=== PATIENT | male | born 1985 | race Caucasian/White ===

== ENCOUNTER 2019-08-19 13:14 | Emergency (ER) | payer BC ==
--- OUTSIDE RECORDS SUMMARY | 2019-08-19 13:24 | XMS REPORT | Summary of Care ---
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 Details Date Type Department Care Team Description 03/30/2019 Urgent Care [facility] Unknown, Attending Viral illness (Primary Dx); Urgent Care Frantz Walton MD [address] [facility] [address] [place] [address] Cough; [address] [facility], Headache due to viral [place] [address] [place] [address] Allergies No Known Allergiesdocumented as of this encounter (statuses as of 03/30/2019) Medications Medication Sig Dispensed Refills Start Date End Date Status acetaminophen-codeine 1/2 - 1 tab Every 15 tablet 0 03/30/2019 Active 300-30 mg 4hrs as needed for tabletIndications: pain or cough Cough requiring narcotic documented as of this encounter (statuses as of 03/30/2019) Active Problems No known active problemsdocumented as of this encounter (statuses as of 2018) Social History Tobacco Use Types Packs/Day Years Used Date Never Smoker Smokeless Tobacco: Never Used Sex Assigned at Date Recorded Not on file Job Start Date Occupation Industry Not on file Not on file Not on file Travel History Travel Start Travel End No recent travel history available. documented as of this encounter Last Filed Vital Signs Vital Sign Reading Time Taken Comments Blood Pressure 125/81 03/30/2019 7:23 PM CDT Pulse 65 03/30/2019 7:23 PM CDT Temperature 36.7 C (98 F) 03/30/2019 7:23 PM CDT Respiratory Rate 18 03/30/2019 7:23 PM CDT Oxygen Saturation 97% 03/30/2019 7:23 PM CDT Inhaled Oxygen Concentration - - Weight 89.8 kg (198 lb) 03/30/2019 7:23 PM CDT Height 175.3 cm (5' 9") 03/30/2019 7:23 PM CDT Body Mass Index 29.24 03/30/2019 7:23 PM CDT documented in this encounter Patient Instructions Patient InstructionsFrantz Walton MD - 03/30/2019 7:00 PM CDT1. Viral illness Viral Illness -- Summertime cold . No focus suspicious for a bacterial process. Encourage fluids. Eat as desired. Any meals missed while ill will be made up when well again. 2. Cough - acetaminophen-codeine 300-30 mg tablet; 1/2 - 1 tab Every 4hrs as needed for pain or cough requiring narcotic Dispense: 15 tablet; Refill: 0 Cough Honey 2 teaspoons relieves airway irritation. Use as needed. Dark Chocolate may help with cough (xanthenes). Research from [place] but did not specify how many boxes to eat. Guaifenesin 100mg / Dextromethorphan 10mL in 5mL (Robitussin DM): 10mL every 4 hours as needed for cough and mucous flow. Many other brands. Recommend those with only guaifenesin & dextromethorphan. Codeine when narcotic needed beginning with half pill. Do not drive or engage in hazardous activities for 4 hours after taking codeine. 3. Headache due to viral infection Pain Acetaminophen (Tylenol) 500mg take 2 tablets twice a day baseline and up to 4 times a day for pain. May add Ibuprofen 200mg take 2 tablets every 4 hours if greater relief needed. In blinded studies, greater than 400mg does not relieve pain better than 400mg. If any risk of heart problem, limit to 1200mg a day. Tylenol and ibuprofen may be taken at the same time and give greater relief than expected if add thetwo effects together, called "1+1=3" Codeine if narcotic necessary, Has a tylenol in it, to be counted in daily total. Do not drive or engage in hazardous activities for 4 hours after taking codeine. See primary provider if follow up needed or return here as needed. 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 All Vitals taken, allergies and all medications reviewed, fall risk assessed. Pain level 0. 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 HPI Tue scratchy throat Wed productive cough. Frontal headache. Awake on-call Tx: Mucinex, APAP Medications No outpatient medications prior to visit. No facility-administered medications prior to visit. Review of Systems Constitutional: Denies fever, chills Skin: Denies: Rash Allergy/Immunology: rhinorrhea resolved Eyes: Denies: visual loss or blurred vision ENT: sore throat Denies: Earache, nasal congestion, Respiratory: cough Denies: dyspnea, Gastrointestinal: Denies: abdominal pain, nausea, vomiting, diarrhea Genitourinary: Denies: dysuria, urgency, frequency Musculoskeletal: Denies: Lumbar pain, extremity pain Neuro: frontal headache, Denies: vision change, dizziness, lightheaded No past medical history on file. No past surgical history on file. No family history on file. Social History Socioeconomic History Marital status: Spouse name: Not on file Number of children: Not on file Years of education: Not on file Highest education level: Not on file Occupational History Not on file Social Needs Financial resource strain: Not on file Food insecurity: Worry: Not on file Inability: Not on file Transportation needs: Medical: Not on file Non-medical: Not on file Tobacco Use Smoking status: Never Smoker Smokeless tobacco: Never Used Substance and Sexual Activity Alcohol use: Not on file Drug use: Not on file Sexual activity: Not on file Lifestyle Physical activity: Days per week: Not on file Minutes per session: Not on file Stress: Not on file Relationships Social connections: Talks on phone: Not on file Gets together: Not on file Attends scientology service: Not on file Active member of club or organization: Not on file Attends meetings of clubs or organizations: Not on file Relationship status: Not on file Intimate partner violence: Fear of current or ex partner: Not on file Emotionally abused: Not on file Physically abused: Not on file Forced sexual activity: Not on file Other Topics Concerns: Not on file Social History Narrative Not on file Vital Signs BP 125/81 | Pulse 65 | Temp 36.7 C (98 F) (Oral) | Resp 18 | Ht 5' 9" ( 1.753 m) | Wt 198 lb(89.8 kg) | SpO2 97% | BMI 29.24 kg/m Physical Exam Head: Inspection normal. Face nontender Eyes: PERRL, conjunctiva/sclera normal ENT: moist mucous membranes, palate normal, pharynx normal, nose normal, Neck: non-tender, no masses or swelling Respiratory/Chest: breath sounds normal, no wheezing Cardiovascular: regular rate and rhythm, heart sounds normal GI: abdomen soft, non-tender, bowel sounds normal MS: Legs: non-tender Back: non-tender, no CVA tenderness Skin: no rash. Normal color and turgor. Neurologic: alert, speech normal, gait normal Psychiatric: Interactive, Mood normal Assessment/Plan 1. Viral illness Viral Illness -- Summertime cold . No focus suspicious for a bacterial process. Encourage fluids. Eat as desired. Any meals missed while ill will be made up when well again. 2. Cough - acetaminophen-codeine 300-30 mg tablet; 1/2 - 1 tab Every 4hrs as needed for pain or cough requiring narcotic Dispense: 15 tablet; Refill: 0 Cough Honey 2 teaspoons relieves airway irritation. Use as needed. Dark Chocolate may help with cough (xanthenes). Research from [place] but did not specify how many boxes to eat. Guaifenesin 100mg / Dextromethorphan 10mL in 5mL (Robitussin DM): 10mL every 4 hours as needed for cough and mucous flow. Many other brands. Recommend those with only guaifenesin & dextromethorphan. Codeine when narcotic needed beginning with half pill. Do not drive or engage in hazardous activities for 4 hours after taking codeine. 3. Headache due to viral infection Pain Acetaminophen (Tylenol) 500mg take 2 tablets twice a day baseline and up to 4 times a day for pain. May add Ibuprofen 200mg take 2 tablets every 4 hours if greater relief needed. In blinded studies, greater than 400mg does not relieve pain better than 400mg. If any risk of heart problem, limit to 1200mg a day. Tylenol and ibuprofen may be taken at the same time and give greater relief than expected if add thetwo effects together, called "1+1=3" Codeine if narcotic necessary, Has a tylenol in it, to be counted in daily total. Do not drive or engage in hazardous activities for 4 hours after taking codeine. See primary provider if follow up needed or return here as needed. documented in this encounter Plan of Treatment Health Maintenance Due Date Last Done Comments VARICELLA VACCINES (1 of - + 1997 2-dose series) DTaP,Tdap,and Td Vaccines ( - 2003 Tdap) INFLUENZA VACCINE (#1) 2019 PNEUMOCOCCAL 0-64 YEARS COMBINED Aged Out No longer eligible based on SERIES patient's age to complete this topic documented as of this encounter Results Not on filedocumented in this encounter Visit Diagnoses Diagnosis Viral illness - Primary Unspecified viral infection, in conditions classified elsewhere and of unspecified site Cough Headache due to viral infection documented in this encounter Insurance Payer Benefit Plan Subscriber ID Effective Dates Phone Address Type / Group BCBS OF [facility] [id number] 2018-Jairo [phone] [address] PPO/POS [facility] [id number] [place] [address] (Home) [place] [address] documented as of this encounter
--- OUTSIDE RECORDS SUMMARY | 2019-08-19 13:24 | XMS REPORT ---
:1985 [facility] Address [address] [place] [address] Dr. Khan [address] [place] [address] Care Team Providers Name Role Phone Unavailable Unavailable Unavailable Problems This patient has no known problems. Allergies, Adverse Reactions, Alerts This patient has no known allergies or adverse reactions. Medications This patient has no known medications.
--- NOTE | 2019-08-19 14:40 | RAD REPORT ---
EXAM DESCRIPTION: RAD - Chest Pa And Lat (2 Views) - 08/19/2019 2:05 pm CLINICAL HISTORY: fever, cough Chest pain. COMPARISON: [facility] Protocol dated 06/24/2019No comparisons FINDINGS: The lungs are clear. The heart is normal in size. No displaced fractures. IMPRESSION: No acute abnormality detected.
--- NOTE | 2019-08-19 15:19 | EDPHYS ---
Physician Documentation [facility] Name: Gilmar Wall Age: 34 yrs Sex: Male : 1985 Arrival Date: 08/19/2019 Time: 13:17 Bed 30 Private MD: ED Physician Ino Amezcua HPI: 08/19 13:53 This 34 yrs old Male presents to ER via Ambulatory with complaints of Fever. jmm 13:53 Onset: The symptoms/episode began/occurred 1 day(s) ago. Modifying factors: The jmm symptoms are alleviated by nothing. the symptoms are aggravated by nothing. Associated signs and symptoms: Pertinent positives: fever, cough. This is a 34 year old male with no chronic medical conditions that presents to the ED with complaints of fever and slight cough beginning 1 day ago. Denies sore throat, vomiting, abdominal pain. 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 Denies contact with anyone under investigation for coronavirus. Denies recent travel to [employer] . Historical: - Allergies: 13:29 No Known Allergies; hb - PMHx: 13:29 None; hb - PSHx: 13:29 None; hb - Immunization history:: Flu vaccine is not up to date. - Coronavirus screen:: The patient has NOT traveled to [place], [place], or [place] in the past 14 days. The patient has NOT had contact with known/suspected case of Coronavirus? Proceed with normal triage procedures. - Social history:: Smoking status: Patient denies any tobacco usage or history of. - Ebola Screening: : No symptoms or risks identified at this time. ROS: 13:53 Cardiovascular: Negative for chest pain, palpitations, and edema, Respiratory: Negative jmm for shortness of breath, cough, wheezing, and pleuritic chest pain. 13:53 Constitutional: Positive for fever. 13:53 Respiratory: Positive for cough. 13:53 All other systems are negative. Exam: 13:53 Constitutional: This is a well developed, well nourished patient who is awake, alert, jmm and in no acute distress. Head/Face: atraumatic. Eyes: EOMI, no conjunctival erythema appreciated 13:53 Neck: Trachea midline, Supple Chest/axilla: Normal chest wall appearance and motion. Cardiovascular: Regular rate and rhythm. No edema appreciated Respiratory: Normal respirations, no respiratory distress appreciated Abdomen/GI: Non distended, soft Back: Normal ROM Skin: General appearance color normal MS/ Extremity: Moves all extremities, no obvious deformities appreciated, no edema noted to the lower extremities Neuro: Awake and alert, normal gait Psych: Behavior is normal, Mood is normal, Patient is cooperative and pleasant 13:53 ENT: TM's: erythema, that is mild, bilaterally, Posterior pharynx: erythema, that is mild. Vital Signs: 13:30 BP 112 / 79; Pulse 94; Resp 18 S; Temp 99.3(O); Pulse Ox 96% on R/A; Weight 88.45 kg hb (R); Height 5 ft. 9 in. (175.26 cm) (R); Pain 3/10; 14:12 BP 116 / 77; Pulse 84; Resp 18; Pulse Ox 95% on R/A; wh 15:24 BP 114 / 77; Pulse 81; Resp 18; Temp 99; Pulse Ox 97% ; wh 13:30 Body Mass Index 28.80 (88.45 kg, 175.26 cm) hb MDM: 13:36 Patient medically screened. [facility] 15:16 Data reviewed: vital signs, nurses notes. Counseling: I had a detailed discussion with [facility] the patient and/or guardian regarding: the historical points, exam findings, and any diagnostic results supporting the discharge/admit diagnosis, lab results, radiology results, the need for outpatient follow up, to return to the emergency department if symptoms worsen or persist or if there are any questions or concerns that arise at home. ED course: Patient is alert and non toxic in appearance in the ED. No signs of resp distress. Will treat empirically for flu based on symptoms and clinical presentation. Patient is advised to follow up with pcp and otherwise given strict return precautions. Patient understood and agrees with the plan of care. . 08/19 13:48 Order name: Flu; Complete Time: 14:28 [facility] 08/19 13:48 Order name: Strep; Complete Time: 14:28 [facility] 08/19 13:48 Order name: Chest Pa And Lat (2 Views) XRAY; Complete Time: 14:58 [facility] 08/19 14:13 Order name: Throat Culture EDMS Administered Medications: No medications were administered Disposition: 08/19/19 15:18 Discharged to Home. Impression: Acute upper respiratory infection, unspecified. - Condition is Stable. - Discharge Instructions: Influenza, Adult, Upper Respiratory Infection, Adult. - Prescriptions for Tamiflu 75 mg Oral Capsule - take 1 tablet by ORAL route every 12 hours for 5 days; 10 tablet. - Medication Reconciliation Form, Thank You Letter, Antibiotic Education, Prescription Opioid Use form. - Follow up: Private Physician; When: 2 - 3 days; Reason: Recheck today's complaints, Continuance of care, Re-evaluation by your physician. Addendum: 08/21/2019 07:26 Co-signature as Attending Physician, Ino Amezcua MD I agree with the assessment and c bear plan of care. Signatures: Dispatcher [employer] EDMS Ino Amezcua MD MD cha Mickail, Joel, PA PA jmm Baxter, Heather, LETICIA RN Nunu Courtney Corrections: (The following items were deleted from the chart) 08/19 15:25 15:18 08/19/2019 15:18 Discharged to Home. Impression: Acute upper respiratory wh infection, unspecified. Condition is Stable. Forms are Medication Reconciliation Form, Thank You Letter, Antibiotic Education, Prescription Opioid Use. Follow up: Private Physician; When: 2 - 3 days; Reason: Recheck today's complaints, Continuance of care, Re-evaluation by your physician. christian
--- NOTE | 2019-08-19 15:19 | ER ---
Nurse's Notes [facility] Name: Gilmar Wall Age: 34 yrs Sex: Male : 1985 Arrival Date: 08/19/2019 Time: 13:17 Bed 30 Private MD: Diagnosis: Acute upper respiratory infection, unspecified Presentation: 08/19 13:27 Presenting complaint: Patient states: fever up to 103.5 Temp and slight cough. Pt hb Denies N/V/D. Reports taking Ibuprofen at 1100. Pt denies sore throat. 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 Transition of care: patient was not received from another setting of care. Onset of symptoms was August 2019. Risk Assessment: Do you want to hurt yourself or someone else? Patient reports no desire to harm self or others. Care prior to arrival: None. 13:27 Method Of Arrival: Ambulatory hb 13:27 Acuity: [place] 4 hb 14:12 Initial Sepsis Screen: Does the patient meet any 2 criteria? No. Patient's initial wh sepsis screen is negative. Does the patient have a suspected source of infection? No. Patient's initial sepsis screen is negative. Historical: - Allergies: 13:29 No Known Allergies; hb - PMHx: 13:29 None; hb - PSHx: 13:29 None; hb - Immunization history:: Flu vaccine is not up to date. - Coronavirus screen:: The patient has NOT traveled to [place], [place], or [place] in the past 14 days. The patient has NOT had contact with known/suspected case of Coronavirus? Proceed with normal triage procedures. - Social history:: Smoking status: Patient denies any tobacco usage or history of. - Ebola Screening: : No symptoms or risks identified at this time. Screenin:12 Abuse screen: Denies threats or abuse. Denies injuries from another. Nutritional wh screening: No deficits noted. Tuberculosis screening: No symptoms or risk factors identified. Fall Risk None identified. Assessment: 14:11 General: Appears in no apparent distress. Behavior is calm, cooperative, appropriate wh for age. Pain: Denies pain. Neuro: Level of Consciousness is awake, alert, obeys commands. Cardiovascular: Heart tones S1 S2. Respiratory: Airway is patent Respiratory effort is even, unlabored, Respiratory pattern is regular, symmetrical, Breath sounds are clear bilaterally. GI: Abdomen is flat, non-distended. : No signs and/or symptoms were reported regarding the genitourinary system. EENT: Throat is pink. Derm: Skin is intact, is healthy with good turgor, Skin is pink, warm \\T\\ dry. normal. Musculoskeletal: Circulation, motion, and sensation intact. 15:24 Reassessment: Patient appears in no apparent distress at this time. No changes from previously documented assessment. Patient and/or family updated on plan of care and expected duration. Pain level reassessed. Patient is alert, oriented x 3, equal unlabored respirations, skin warm/dry/pink. Vital Signs: 13:30 BP 112 / 79; Pulse 94; Resp 18 S; Temp 99.3(O); Pulse Ox 96% on R/A; Weight 88.45 kg hb (R); Height 5 ft. 9 in. (175.26 cm) (R); Pain 3/10; 14:12 BP 116 / 77; Pulse 84; Resp 18; Pulse Ox 95% on R/A; wh 15:24 BP 114 / 77; Pulse 81; Resp 18; Temp 99; Pulse Ox 97% ; wh 13:30 Body Mass Index 28.80 (88.45 kg, 175.26 cm) hb ED Course: 13:17 Patient arrived in ED. mr 13:20 Soy Gongora PA is PHCP. [facility] 13:20 Ino Amezcua MD is Attending Physician. m 13:27 Arm band placed on. hb 13:29 Triage completed. hb 13:57 Flu and/or RSV swab sent to lab. Strep swab sent to lab. lt1 13:57 Strep Sent. lt1 13:57 Flu Sent. lt1 14:03 Chest Pa And Lat (2 Views) XRAY In Process Unspecified. EDMS 14:08 Nunu Villagran is Primary Nurse. 14:12 Patient has correct armband on for positive identification. Bed in low position. Call light in reach. Side rails up X 1. Pulse ox on. NIBP on. 15:24 No provider procedures requiring assistance completed. Patient did not have IV access during this emergency room visit. Administered Medications: No medications were administered Outcome: 15:18 Discharge ordered by . christian 15:24 Discharged to home ambulatory. 15:24 Condition: stable 15:24 Discharge instructions given to patient, Instructed on discharge instructions, follow up and referral plans. medication usage, POC Demonstrated understanding of instructions, follow-up care, medications, POC Prescriptions given X 1. 15:25 Patient left the ED. Signatures: Dispatcher [employer] EDMS Soy Gongora PA PA jmm RiveraMagdalena mr Iraida Saldaña RN RN Tyshawn, Nunu Carroll, Cheyanne lt1 Corrections: (The following items were deleted from the chart) 13:34 13:27 Acuity: [place] 3 hb hb 13:35 13:27 Presenting complaint: Patient states: fever up to 103.5 Temp and slight cough. Pt hb Denies N/V/D. Reports taking Ibuprofen at 1100. Pt denies sore throat. hb
[2019-08-19 15:47] VITALS: BP 114/77; TEMP 99; O2SAT 97
== END 2019-08-19 15:25 | disposition home or self-care (01) ==
LOC: ER 13:14
DX: J06.9 Acute upper respiratory infection, unspecified (principal)
CPT/HCPCS: 71046; 87070; 87081; 87804; 99284